=== PATIENT | female | born 1950 | race Caucasian/White ===

== ENCOUNTER → 2024-02-11 06:08 | Day surgery (SDC) | payer MEDICARE, OTHER, SELFPAY ==
[2024-02-11] VITALS (12 sets, daily range): BP systolic 75–129; BP diastolic 35–85; BMI 41.6
[2024-02-11 13:36] LABS: Hematocrit 33.3 % (37.0-47.0); Mean Corpuscular Hgb 31.1 pg (27.0-31.0); Mean Corpuscular Volume 94.1 fL (81.0-99.0); Mean Platelet Volume 9.4 fL (7.4-10.4); Platelet Count 159 10^3/uL (130-400); Red Blood Cell Count 3.54 10^6/uL (4.20-5.40); Red Cell Dist. Width 13.7 % (11.5-14.5); White Blood Cell Count 6.9 10^3/uL (4.8-10.8)
[2024-02-11 13:53] LABS: ALT (SGPT) 14 U/L (0-35); AST (SGOT) 27 U/L (14-36); Albumin 3.9 g/dl (3.5-5.0); Alkaline Phosphatase 62 U/L (38-126); Blood Urea Nitrogen 14 mg/dl (7-17); Calcium 8.6 mg/dl (8.4-10.2); Carbon Dioxide 24 mmol/L (22-30); Chloride 104 mmol/L (98-107); Estimated Creatinine Clearance 93 ml/min; Glucose 103 mg/dl (70-99); Potassium 3.9 mmol/L (3.5-5.1); Sodium 141 mmol/L (135-145); Total Bilirubin 1.1 mg/dl (0.2-1.3); Total Protein 6.5 g/dl (6.3-8.2); eGFR > 60.00
[2024-02-11] MEDS: DUONEB 3 ML INH (19:37)
== END ==
LOC: SDS 06:08
PROVIDERS: ATTENDING PHYSICIAN Orthopaedic Surgery Hand Surgery; FAMILY PHYSICIAN Internal Medicine
DX: S42.402A Unspecified fracture of lower end of left humerus, initial encounter for closed fracture (principal); S52.122A Displaced fracture of head of left radius, initial encounter for closed fracture; S52.042A Displaced fracture of coronoid process of left ulna, initial encounter for closed fracture; W19.XXXA Unspecified fall, initial encounter
CPT/HCPCS: 24666; 24685; C1713; 73070; 76000; 80053; 85027; 94640

== ENCOUNTER 2024-02-24 16:06 | Inpatient (IN) | payer MEDICARE, OTHER, SELFPAY ==
[2024-02-24] VITALS (10 sets, daily range): BP systolic 113–132; BP diastolic 58–79; BMI 40.3
[2024-02-24 14:08] LABS: Hematocrit 34.6 % (37.0-47.0); Hemoglobin 11.1 g/dL (12.0-16.0); Mean Corp Hgb Conc. 32.1 g/dL (33.0-37.0); Mean Corpuscular Hgb 30.3 pg (27.0-31.0); Mean Corpuscular Volume 94.5 fL (81.0-99.0); Mean Platelet Volume 9.4 fL (7.4-10.4); Platelet Count 142 10^3/uL (130-400); Red Blood Cell Count 3.66 10^6/uL (4.20-5.40); White Blood Cell Count 7.1 10^3/uL (4.8-10.8)
[2024-02-24] MEDS: NORMOSOL-R/PLASMALYTE-A 1000 IV ×2 (14:19→22:27)
[2024-02-24] MEDS: DILAUDID 0.25 MG IV ×3 (20:19→20:50)
[2024-02-24] MEDS: ZOFRAN 4 MG IV (20:21)
[2024-02-24] MEDS: FLOVENT 44 MCG INHALER 2 PUFF INH (20:56)
[2024-02-24] MEDS: COLACE 100 MG PO (23:32)
[2024-02-24] MEDS: LOPRESSOR 50 MG PO (23:32)
[2024-02-24] MEDS: KLOR-CON 20 MEQ PO (23:32)
[2024-02-24] MEDS: CRESTOR 10 MG PO (23:32)
[2024-02-24] MEDS: ANCEF 10 IV (23:46)
[2024-02-25] VITALS (8 sets, daily range): BP systolic 99–129; BP diastolic 56–79; PULSE 80–82; O2SAT 80–92
[2024-02-25] MEDS: BACITRACIN OINTMENT TOPICAL (00:24)
[2024-02-25] MEDS: ULTRAM 50 MG PO ×2 (03:41→12:58)
--- NOTE | 2024-02-25 06:14 | PTCARENOTE ---
Patient received from PACU in bed. She was oriented to room and surroundings. Left after with bo wrap and multiple pins in various directions. Unable to apply sling to patient. GISELLE elevated. NV WNL.. Ultram 50mg x1 for pain. Patient
moving well in bed. Voided x 3 . Florentin PO. O2 weaned off. Room Air Sat mid 90's
--- NOTE | 2024-02-25 07:31 | W.PN.UPDATE ---
Update Note
Progress Note Update
Comfortable
VSS
L UE NVI
Start wound care today
Anticipate DC in am
thanks
GGMD
[2024-02-25] MEDS: FLOVENT 44 MCG INHALER INH ×2 (07:42→20:23)
[2024-02-25] MEDS: NORMOSOL-R/PLASMALYTE-A 1000 IV ×2 (08:53→18:39)
[2024-02-25] MEDS: ZOLOFT 25 MG PO (08:54)
[2024-02-25] MEDS: COLACE 100 MG PO ×2 (08:55→21:00)
[2024-02-25] MEDS: LOPRESSOR 50 MG PO ×2 (08:55→21:01)
[2024-02-25] MEDS: ARIMIDEX 1 MG PO (08:55)
[2024-02-25] MEDS: KLOR-CON 20 MEQ PO ×2 (08:55→21:01)
[2024-02-25] MEDS: SYNTHROID 150 MCG PO (08:55)
[2024-02-25] MEDS: BUMEX 1 MG PO (08:56)
[2024-02-25] MEDS: ANCEF 10 IV (08:56)
[2024-02-25] MEDS: BACITRACIN OINTMENT 1 APPLIC TOPICAL ×2 (08:57→21:00)
--- NOTE | 2024-02-25 10:09 | CM ---
Addendum entered by Alba Oh RN 02/25/24 14:29:
Angela
Original Note:
Reviewed the chart notes and spoke with the patient at the bedside. The patient resides alone in a one story home with three steps to enter. The patient reports no DME/SNF in the past, but has had [facility]. Patient requested [facility] referral
for PT/OT needs at home. Referrals sent via [facility]. The patient confirmed her pharmacy of choice is the [facility] [place]. The patient's cousin will provide transportation home at discharge. Patient is planning for discharge
tomorrow. CM continues to be available to patient/family and is monitoring medical plan for needs at discharge.
Plan: Discharge to home with [facility].
[2024-02-25] MEDS: NORMOSOL-R/PLASMALYTE-A IV (11:43)
[2024-02-25] MEDS: CRESTOR 10 MG PO (17:02)
[2024-02-25] MEDS: NORCO 5/325 2 TABLET PO (17:06)
[2024-02-25] MEDS: ELIQUIS 5 MG PO (21:00)
[2024-02-26] MEDS: ULTRAM 50 MG PO ×3 (00:03→14:52)
[2024-02-26] MEDS: FLOVENT 44 MCG INHALER INH ×2 (07:27→19:21)
[2024-02-26 07:31] VITALS: BP 105/61
--- NOTE | 2024-02-26 07:59 | W.PN.UPDATE ---
Update Note
Progress Note Update
Still with some degree of pain and dysfunction
Lives alone and feels may be difficult for her at home
VSS
L UE with mild numbness small finger otherwise NVI
Continue pain control, therapy, wound care
Possible DC to home (if possible) later today or tomorrow
GGMD
--- NOTE | 2024-02-26 08:26 | PN.CDI ---
CDI
- -
CDI:
Physician Documentation Request
Admit Date: 02/24/24 16:06
Dear Doctor Gregorio,
Please review the following and provide your response in the progress notes.
Clinical Indicators:
Height: 5'2
Weight: 220lbs
BMI: 40.2
Other Clinical Notes: Bellman indicates obesity
If possible, please provide an associated diagnosis related to the abnormal BMI, such as:
Morbid obesity
Obesity due to excess calories
Other
Use of terms such as suspected, likely, concern for, or probable (associated with a specific diagnosis that is being evaluated, monitored, or treated as if it exists) are acceptable and can be coded in the inpatient setting, when documented at the
time of discharge.
Thank you,
Robby Shelton RN
CDI Specialist
Please use your independent medical judgment in providing your response.
--- NOTE | 2024-02-26 08:32 | CM ---
Addendum entered by Jolanta Torres 02/26/24 11:03:
Ambulance forms on chart
[facility]
Report #: [phone]
Fax# #: [phone]
Addendum entered by Jolanta Torres 02/26/24 10:44:
PT/OT recommending SNF
tt Dr. Perkins & spoke with Rosalinda patient cousin
Options reviewed for SNF - referrals placed to [facility] & [facility].
Prefer [facility]
IMM explained & signed.
Discussed wheelchair van
PLAN: SNF, pending bed availability
Original Note:
Spoke with Rosalinda, patient cousin [phone] regarding discharge.
Patient referral to [facility] who accepted. Called Daisha from [facility] & notified & updated [facility].
PLAN: Discharge home with [facility]
Cousin to transport
[facility] FAX # [phone]
[2024-02-26] MEDS: ARIMIDEX 1 MG PO (08:49)
[2024-02-26] MEDS: SYNTHROID 150 MCG PO (08:49)
[2024-02-26] MEDS: BUMEX 1 MG PO (08:49)
[2024-02-26] MEDS: ZOLOFT 25 MG PO (08:50)
[2024-02-26] MEDS: ELIQUIS 5 MG PO ×2 (08:50→20:43)
[2024-02-26] MEDS: KLOR-CON 20 MEQ PO ×2 (08:50→20:43)
[2024-02-26] MEDS: LOPRESSOR 50 MG PO ×2 (08:50→20:43)
[2024-02-26] MEDS: COLACE 100 MG PO ×2 (08:50→20:43)
[2024-02-26] MEDS: BACITRACIN OINTMENT 1 APPLIC TOPICAL ×2 (14:54→20:42)
[2024-02-26 15:44] VITALS: BP 110/58
[2024-02-26] MEDS: CRESTOR 10 MG PO (18:31)
[2024-02-26 23:00] VITALS: BP 100/57
[2024-02-27] MEDS: SYNTHROID 150 MCG PO (05:39)
[2024-02-27] MEDS: ULTRAM 50 MG PO (05:43)
[2024-02-27 07:30] VITALS: BP 117/83
[2024-02-27] MEDS: FLOVENT 44 MCG INHALER INH (07:30)
--- NOTE | 2024-02-27 08:04 | W.PN.UPDATE ---
Update Note
Progress Note Update
Comfortable
Difficulty ambulating however
VSS
Dressing D and I
L Hand NVI
For DC to SNF today
F/U next week
GGMD
[2024-02-27] MEDS: BUMEX 1 MG PO (09:07)
[2024-02-27] MEDS: ELIQUIS 5 MG PO (09:08)
[2024-02-27] MEDS: KLOR-CON 20 MEQ PO (09:08)
[2024-02-27] MEDS: ZOLOFT 25 MG PO (09:09)
[2024-02-27] MEDS: COLACE 100 MG PO (09:09)
[2024-02-27] MEDS: ARIMIDEX 1 MG PO (09:09)
[2024-02-27] MEDS: LOPRESSOR 50 MG PO (09:09)
[2024-02-27] MEDS: BACITRACIN OINTMENT 1 APPLIC TOPICAL (09:09)
--- NOTE | 2024-02-27 10:17 | CM ---
Addendum entered by Celia Riley 02/27/24 10:25:
Family member Rosalinda and [facility] aware of transport time
Original Note:
Pt for discharge today
Spoke with Arlene at [facility] - aware
Transport at 1:30PM
Plan - transfer to [facility]
Report #: [phone]
Fax# #: [phone]
[2024-02-27 13:40] VITALS: BP 102/58
--- NOTE | 2024-02-27 13:43 | PTCARENOTE ---
The only discharge medication present on patient's discharge was Tylenol. Spoke with Dr. Nathan Perkins, who stated he was unable to update discharge medications but that he would call [facility] once patient discharged. I sent Dr. Perkins a
photo of the active medications and he stated okay to send the list to the facility and use as the discharge medications. I spoke with nurse Abida from [facility] and explained the situation. She requested the doctor send a script for tramadol via
fax. I also gave Abida Kidd phone number to be contacted once she arrives.
== END 2024-02-27 14:28 | DRG 493 ==
LOC: 2 SOUTH 16:06
PROVIDERS: ADMITTING PHYSICIAN Orthopaedic Surgery Hand Surgery
PROC: 0PUG07Z Supplement Left Humeral Shaft with Autologous Tissue Substitute, Open Approach (ICD-10-PCS; 2024-02-24)
PROC: 0QB30ZZ Excision of Left Pelvic Bone, Open Approach (ICD-10-PCS; 2024-02-24)
PROC: 0PH Upper Bones, Insertion (ICD-10-PCS; 2024-02-24)
DX: S53.195A Other dislocation of left ulnohumeral joint, initial encounter (principal); S42.492A Other displaced fracture of lower end of left humerus, initial encounter for closed fracture; X58.XXXA Exposure to other specified factors, initial encounter; R26.2 Difficulty in walking, not elsewhere classified; E03.9 Hypothyroidism, unspecified; G47.30 Sleep apnea, unspecified; F41.9 Anxiety disorder, unspecified; J44.9 Chronic obstructive pulmonary disease, unspecified; I48.91 Unspecified atrial fibrillation; I25.10 Atherosclerotic heart disease of native coronary artery without angina pectoris; I10 Essential (primary) hypertension; Z79.01 Long term (current) use of anticoagulants
CPT/HCPCS: 73080; 76000; 85027; 93005; 94640; 97116; 97163; 97167; 97535

== ENCOUNTER 2024-04-04 06:15 | Day surgery (SDC) | payer MEDICARE, OTHER, SELFPAY ==
[2024-04-04 14:05] VITALS: BP 117/59; BMI 40.6
[2024-04-04 14:21] VITALS: BMI 40.6
[2024-04-04 16:02] VITALS: BP 101/73
[2024-04-04 16:15] VITALS: BP 111/59
[2024-04-04 16:30] VITALS: BP 110/54
[2024-04-04] MEDS: TYLENOL 650 MG PO (16:34)
== END 2024-04-04 17:15 | disposition home or self-care (01) ==
LOC: SDS 06:15
PROVIDERS: ATTENDING PHYSICIAN Orthopaedic Surgery Hand Surgery
DX: S42.402A Unspecified fracture of lower end of left humerus, initial encounter for closed fracture (principal); X58.XXXA Exposure to other specified factors, initial encounter
CPT/HCPCS: 20694